=== PATIENT | male | born 1955 | race Hispanic/Latino ===

== ENCOUNTER 2024-05-01 08:26 | Outpatient (CLI) | payer OTHER ==
[2024-05-01] MEDS ORDERED: Magnevist 469MG/ML 20 ML VIAL ONE (10:52)
== END 2024-05-01 08:27 | disposition home or self-care (01) ==
LOC: CSHMRI 08:26
PROVIDERS: ATTEND Urology
DX: R97.20 Elevated prostate specific antigen [PSA] (principal); M89.9 Disorder of bone, unspecified
CPT/HCPCS: 72197; 82565; A9579